=== PATIENT | male | born 1975 | race Caucasian/White ===

== ENCOUNTER 2017-03-13 16:35 | Emergency (ER) | payer OTHER ==
[~2017-03-13] VITALS: Ht 170.2 cm; Wt 70.3 kg
[~2017-03-13 16:35] MED LIST: ASPI81CH PO; ATOR40TA PO; Augmentin 875-1 EACH PO; CEPH500 PO; CRUTCH3 XX; Carvedilol3.125 MG PO; EFFIENT10 MG PO; HYDACE5 PO; Lisinopril2.5 MG PO; METPHE20 PO; NAPR250 PO; NEBI5 PO; NICO21TP TD; Norco 5-325 Ta1 EACH PO; OMEP20ER PO; OMEPRAZOLE MAGN20 MG PO; Percocet 10-321 EACH PO; Roxicodone5 MG PO; VICODIN 5-3001 EACH PO
[2017-03-13] MEDS ORDERED: LIDO700A20 TOP (17:48)
[2017-03-13] MEDS ORDERED: Norco 5-325 Ta1 EACH PO (17:48)
[2017-03-13] MEDS ORDERED: Robaxin500 MG PO (17:48)
== END 2017-03-13 18:16 | disposition home or self-care (01) ==
LOC: ER 16:35
DX: M54.5 Low back pain (principal); I25.2 Old myocardial infarction; Z79.899 Other long term (current) drug therapy; Z87.891 Personal history of nicotine dependence; Z95.5 Presence of coronary angioplasty implant and graft
CPT/HCPCS: 99283

== ENCOUNTER 2017-06-12 07:23 | Emergency (ER) | payer OTHER ==
[~2017-06-12] VITALS: Ht 170.2 cm; Wt 70.3 kg
[~2017-06-12 07:23] MED LIST changes: +LIDO700A20 TOP; +Robaxin500 MG PO
[2017-06-12] MEDS ORDERED: IBUP800 PO (08:37)
[2017-06-12] MEDS ORDERED: Ultram50 MG PO (08:37)
== END 2017-06-12 08:51 | disposition home or self-care (01) ==
LOC: ER 07:23
DX: S81.811A Laceration without foreign body, right lower leg, initial encounter (principal); W22.8XXA Striking against or struck by other objects, initial encounter; Z79.899 Other long term (current) drug therapy; Z79.82 Long term (current) use of aspirin; I25.2 Old myocardial infarction; Z87.891 Personal history of nicotine dependence
CPT/HCPCS: 73590; 99283

== ENCOUNTER 2017-11-25 11:10 | Emergency (ER) | payer OTHER ==
[~2017-11-25] VITALS: Ht 170.2 cm; Wt 70.3 kg
[~2017-11-25 11:10] MED LIST changes: +IBUP800 PO; +Ultram50 MG PO
[2017-11-25] MEDS ORDERED: DICL25ER (11:29)
[2017-11-25] MEDS ORDERED: CYCL10 PO (11:30)
[2017-11-25] MEDS ORDERED: LIDO700A20 TOP (12:05)
== END 2017-11-25 12:26 | disposition home or self-care (01) ==
LOC: ER 11:10
DX: G89.29 Other chronic pain (principal); M54.5 Low back pain; I25.2 Old myocardial infarction; Z79.899 Other long term (current) drug therapy; Z79.82 Long term (current) use of aspirin; Z87.891 Personal history of nicotine dependence
CPT/HCPCS: 96372; 99282; J1885

== ENCOUNTER 2018-04-24 13:19 | Emergency (ER) | payer OTHER ==
[~2018-04-24] VITALS: Ht 170.2 cm; Wt 70.3 kg
[~2018-04-24 13:19] MED LIST changes: +CYCL10 PO; +DICL25ER
[2018-04-24] MEDS ORDERED: Norco 5-325 Ta1 EACH PO (14:41)
[2018-04-24] MEDS ORDERED: Robaxin500 MG PO (14:41)
== END 2018-04-24 14:47 | disposition home or self-care (01) ==
LOC: ER 13:19
DX: M54.5 Low back pain (principal); G89.29 Other chronic pain; I25.2 Old myocardial infarction; Z95.5 Presence of coronary angioplasty implant and graft; Z79.82 Long term (current) use of aspirin; Z87.891 Personal history of nicotine dependence
CPT/HCPCS: 72100; 99283-25

== ENCOUNTER 2024-03-28 08:42 | Emergency (ER) | payer OTHER ==
[~2024-03-28] VITALS: Ht 170.2 cm; Wt 74.8 kg
[~2024-03-28 08:42] MED LIST changes: +Acerola C500 MG PO; +DICL75ER; +DICL75ER PO; +DICLOFENAC SOD100 GM; +NITR.4SL SL; +Robaxin750 MG; +TRAM50 PO; +Vitamin B Comple1 EA PO
[2024-03-28 09:07] VITALS: BP 159/87
== END 2024-03-28 09:33 | disposition home or self-care (01) ==
LOC: ER 08:42
DX: Z01.812 Encounter for preprocedural laboratory examination (principal); Z79.899 Other long term (current) drug therapy; Z79.82 Long term (current) use of aspirin; I10 Essential (primary) hypertension; E78.5 Hyperlipidemia, unspecified; K21.9 Gastro-esophageal reflux disease without esophagitis; Z87.891 Personal history of nicotine dependence
CPT/HCPCS: 93005; 93010; 99282-25

== ENCOUNTER 2024-04-03 05:40 | Day surgery (SDC) | payer OTHER ==
[2024-04-03] VITALS (17 sets, daily range): BP systolic 119–139; BP diastolic 64–87
[~2024-04-03] VITALS: Ht 170.2 cm; Wt 70.7 kg
[2024-04-03] MEDS ORDERED: Lactated Ringer's 1,000 ML IV SCH (06:20)
[2024-04-03] MEDS ORDERED: CeFAZolin Sodium 2,000 MG in NS 100 ML IV SCH (06:20)
[2024-04-03] MEDS ORDERED: Tranexamic Acid 1,000 MG in NS 100 ML IV SCH (06:20)
--- NOTE | 2024-04-03 06:49 | NUR ---
History, Chart, Medications and Allergies reviewed before start of procedure. Lungs clear T/O to Auscultation. Patient reports completing Chlorhexadine shower X2 prior to admission to hospital. Patient confirms NPO status and agrees with scheduled surgery. Pre-Op teaching done. Pt verbalizes understanding.
[2024-04-03] MEDS ORDERED: Tranexamic Acid 1000 MG/10 ML 10ML Vial (SDV) ONE (06:53)
[2024-04-03] MEDS ORDERED: Glycopyrrolate 0.2 MG/ML 5ML VIAL ONE (07:05)
[2024-04-03] MEDS ORDERED: Ondansetron HCl 2 MG / ML 2ML Vial ONE (07:05)
[2024-04-03] MEDS ORDERED: propofoL 40 ML IV ONE (07:05)
[2024-04-03] MEDS ORDERED: Dexamethasone Sod Phos 10 MG/ML 1ML VIAL ONE (07:05)
[2024-04-03] MEDS ORDERED: Ketorolac Tromethamine 30mg Vial ONE ×2 (07:05→08:52)
[2024-04-03] MEDS ORDERED: FentaNYL Citrate 50 MCG/ML 2 ML Injection ONE ×2 (07:13→08:53)
[2024-04-03] MEDS ORDERED: Midazolam HCl 1MG / ML 2ML Vial ONE (07:13)
[2024-04-03] MEDS ORDERED: Bupivacaine 0.5% W/EPI 1:200000 SDV 30 ML Vial ONE (07:55)
[2024-04-03] MEDS ORDERED: HYDROmorphone HCl/Pf 1MG SYR ONE (07:55)
[2024-04-03] MEDS ORDERED: propofoL 20 ML IV ONE (08:21)
[2024-04-03] MEDS ORDERED: OxyCODONE HCL 5 MG TAB PO PRN (09:00)
--- NOTE | 2024-04-03 09:30 | NUR ---
INTO STEP VIA [facility]. PT A&OX4-REPORTS /10 LEFT UPPER EXTREMITY PAIN. 4X4 AND OPSITE DRESSING C/D/I-ICE APPLIED AND SLING IN PLACE.
--- NOTE | 2024-04-03 10:00 | NUR ---
REVIEWED DISCHARGE INSTRUCTIONS. PT VERBALIZES UNDERSTANDING. PT FATHER DROPPED OFF PT RX @ [facility] AWAITING RETURN FOR DISCHARGE.
--- NOTE | 2024-04-03 11:00 | NUR ---
PT DISCHARGED TO HOME-OUT VIA WHEELCHAIR WITH BELONGINGS & DC INSTRUCTIONS ON HAND.
== END 2024-04-03 11:00 | disposition home or self-care (01) ==
LOC: ORSCMMR 05:40 → ORD 07:30 → ORSCMMR 11:00
PROVIDERS: Orthopaedic Surgery Sports Medicine
PROC: 0LM30ZZ Reattachment of Right Upper Arm Tendon, Open Approach (ICD-10-PCS; principal; 2024-04-03 07:30)
DX: S46.211A Strain of muscle, fascia and tendon of other parts of biceps, right arm, initial encounter (principal); I10 Essential (primary) hypertension; I25.10 Atherosclerotic heart disease of native coronary artery without angina pectoris; E78.5 Hyperlipidemia, unspecified; I25.2 Old myocardial infarction; Z79.899 Other long term (current) drug therapy; Z79.82 Long term (current) use of aspirin
CPT/HCPCS: A9270; C1713; J0690; J1100; J1171; J1885; J2250; J2405; J2704; J3010; J7120

== ENCOUNTER → 2024-06-13 | Outpatient (CLI) | payer OTHER ==
[2024-06-13 19:25] LABS: Microalb/Creat Ratio UR, Rand 5.632 mg/g (0.000-30.000); Microalbumin, Random Urine 8.11 mg/L (0.000-20.000)
== END ==
LOC: LAB 14:51 → LAB SHORT 14:51
PROVIDERS: Family Medicine
DX: R03.0 Elevated blood-pressure reading, without diagnosis of hypertension (principal)
CPT/HCPCS: 82043; 82570

== ENCOUNTER 2024-12-25 10:54 | Day surgery (SDC) | payer OTHER ==
[2024-12-25] VITALS (15 sets, daily range): BP systolic 93–123; BP diastolic 51–79
[~2024-12-25] VITALS: Ht 170.1 cm; Wt 65.8 kg
--- NOTE | 2024-12-25 11:38 | NUR ---
History, Chart, Medications and Allergies reviewed before start of procedure. Pre-Op teaching done. Pt verbalizes understanding. Patient confirms NPO status and agrees with scheduled surgery. Patient states colon prep results YELLOW.
--- NOTE | 2024-12-25 12:07 | NUR ---
12/25/24 1205 Anthony Mckeon CONFIRMED AND REVIEWED H&P, MEDCICATIONS, ALLERGIES, MEDICAL HISTORY, RESPIRATORY HISTORY, VITAL SIGNS, 3-LEAD EKG, CONSENTS, AND PHYSICIAN ORDERS. PATIENT CONFIRMS NPO STATUS AND AGREES WITH SCHEDULED PROCEDURE. MONITOR INTACT WITH CONTINUOUS PULSE OXIMETRY, CAPNOGRAPHY, 3-LEAD EKG, INTERMITTENT BP. SUPPLEMENTAL O2 TO BE TITRATED THROUGHOUT PROCEDURE TO MAINTAIN O2 SATURATION ABOVE 90%. PATIENT DETERMINED TO BE ASA APPROPRIATE FOR PROPOFOL SEDATION PRIOR TO START OF PROCEDURE BY DR. KING.
--- NOTE | 2024-12-25 12:53 | NUR ---
Patient States Post-Procedure ride home has been arranged. Discharge instructions reviewed with patient. Patient verbalizes understanding. Copy given to patient to take home.
== END 2024-12-25 23:00 | disposition home or self-care (01) ==
LOC: ORSCMMR 10:54 → ORD 11:45 → ORSCMMR 11:45
PROVIDERS: Internal Medicine Gastroenterology
PROC: 0DBP8ZX Excision of Rectum, Via Natural or Artificial Opening Endoscopic, Diagnostic (ICD-10-PCS; principal; 2024-12-25 11:45)
DX: Z12.11 Encounter for screening for malignant neoplasm of colon (principal); D12.8 Benign neoplasm of rectum; I25.2 Old myocardial infarction; I25.10 Atherosclerotic heart disease of native coronary artery without angina pectoris; K21.9 Gastro-esophageal reflux disease without esophagitis; G47.30 Sleep apnea, unspecified; Z79.82 Long term (current) use of aspirin; Z79.899 Other long term (current) drug therapy
CPT/HCPCS: 88305; J2704; J7120